=== PATIENT | female | born 1985 | race African-American/Black ===

== ENCOUNTER 2020-01-18 00:02 | Emergency (ER) | payer SELFPAY ==
[~2020-01-18] VITALS: Ht 157.5 cm; Wt 49.9 kg
[2020-01-18 00:07] VITALS: BP 131/78
--- NOTE | 2020-01-18 00:08 | Emergency Room Report ---
History of Present Illness General Chief Complaint: Vomiting Source: Patient Present Illness HPI Disclaimer: Please note that this report is being documented using DRAGON technology. This can lead to erroneous entry secondary to incorrect interpretation by the dictating instrument. HPI: 34-year-old female with no reported medical history presents for evaluation of vomiting. The patient states she has been having multiple episodes of emesis and is now dry heaving for the past 4 hours. She was drinking alcohol with friends on an empty stomach this afternoon. Denies abdominal pain aside from a soreness from retching. Denies diarrhea, fever, chills, shortness of breath, cough, URI symptoms, back pain, dysuria, hematuria , vaginal bleeding or vaginal discharge. No history of abdominal surgeries. No history of pancreatitis or cholecystitis. Denies tobacco or drug use. PMH: Denies PSH: Denies Allergies: Denies Social Hx: Social alcohol use Allergies: Coded Allergies: No Known Allergies (Unverified , 01/18/20) Review of Systems All Other Systems: negative except mentioned in HPI Physical Exam General: Awake and alert, uncomfortable appearing, retching HEENT: NC/AT. EOMI. Cardiovascular: RRR. S1 and S2 normal. No murmur appreciated Resp: Normal work of breathing. No cough, wheezing or crackles appreciated Abdomen: Abdomen is soft, nondistended. Nontender, no rebound, no masses Skin: Intact. No abrasions, laceration or rash over the exposed skin MSK: Normal tone and bulk. Moving all extremities. No obvious deformity. Neuro: Awake and alert. Mentating appropriately. Medical Decision Making Diagnostic Impression: Primary Impression: Vomiting Additional Impression: Gastritis ER Course 34-year-old female presents for evaluation of persistent nausea and vomiting. Differential includes was not limited to gastritis, gastroenteritis, pancreatitis, cholecystitis, dehydration, electrolyte abnormality, viral syndrome, food poisoning. Patient received antiemetics, antacids, IV fluids with improvement of her symptoms. Labs have returned within normal limits. No evidence of pancreatitis or urinary tract infection. Belly remained soft. No indication for emergent imaging at this time. Will discharge to follow-up with PMD and prescribed symptomatic medication. Discussed reasons to return to the emergency department. She understands and agrees with this treatment plan. Laboratory Tests Test 01/18/20 00:10 01/18/20 01:30 White Blood Count 14.7 K/UL (4.8-10.8) H Red Blood Count 4.38 M/UL (4.20-5.40) Hemoglobin 14.6 G/DL (12.0-16.0) Hematocrit 41.0 % (37.0-47.0) Mean Corpuscular Volume 94 FL (80-99) Mean Corpuscular Hemoglobin 33.4 PG (27.0-31.0) H Mean Corpuscular Hemoglobin Concent 35.6 G/DL (32.0-36.0) Red Cell Distribution Width 11.3 % (11.6-14.8) L Platelet Count 261 K/UL (150-450) Mean Platelet Volume 6.0 FL (6.5-10.1) L Neutrophils (%) (Auto) 78.4 % (45.0-75.0) H Lymphocytes (%) (Auto) 16.1 % (20.0-45.0) L Monocytes (%) (Auto) 4.6 % (1.0-10.0) Eosinophils (%) (Auto) 0.1 % (0.0-3.0) Basophils (%) (Auto) 0.8 % (0.0-2.0) Sodium Level 144 MMOL/L (136-145) Potassium Level 3.9 MMOL/L (3.5-5.1) Chloride Level 104 MMOL/L (98-107) Carbon Dioxide Level 16 MMOL/L (21-32) L Anion Gap 24 mmol/L (5-15) H Blood Urea Nitrogen 10 mg/dL (7-18) Creatinine 0.9 MG/DL (0.55-1.30) Estimated Glomerular Filtration Rate > 60 mL/min (>60) Glucose Level 109 MG/DL (74-106) H Calcium Level 9.6 MG/DL (8.5-10.1) Total Bilirubin 1.1 MG/DL (0.2-1.0) H Direct Bilirubin 0.3 MG/DL (0.0-0.3) Aspartate Amino Transferase (AST) 26 U/L (15-37) Alanine Aminotransferase (ALT) 31 U/L (12-78) Alkaline Phosphatase 35 U/L (46-116) L Total Protein 8.3 G/DL (6.4-8.2) H Albumin 4.5 G/DL (3.4-5.0) Globulin 3.8 g/dL Albumin/Globulin Ratio 1.2 (1.0-2.7) Lipase 155 U/L (73-393) Human Chorionic Gonadotropin, Quant 1 mIU/mL (1-6) Urine Color Pale yellow Urine Appearance Clear Urine pH 6 (4.5-8.0) Urine Specific [place] 1.015 (1.005-1.035) Urine Protein 1+ (NEGATIVE) H Urine Glucose (UA) Negative (NEGATIVE) Urine Ketones 4+ (NEGATIVE) H Urine Blood Negative (NEGATIVE) Urine Nitrite Negative (NEGATIVE) Urine Bilirubin Negative (NEGATIVE) Urine Urobilinogen Normal MG/DL (0.0-1.0) Urine Leukocyte Esterase 1+ (NEGATIVE) H Urine RBC 0-2 /HPF (0 - 2) Urine WBC 0-2 /HPF (0 - 2) Urine Squamous Epithelial Cells Few /LPF (NONE/OCC) Urine Bacteria None /HPF (NONE) Disposition: HOME, SELF-CARE Condition: Stable Scripts Famotidine* (Pepcid 20mg tablet*) 20 Mg Tablet 20 MG ORAL DAILY, #30 TAB 0 Refills Prov: Kamari Ramos MD 01/18/20 Ondansetron Odt* (ZOFRAN ODT*) 4 Mg Tab.rapdis 4 MG BC EVERY 6 HOURS PRN for Nausea & Vomiting, #10 TAB 0 Refills Prov: Kamari Ramos MD 01/18/20 Kamari Ramos MD January 18, 2020 00:08
--- NOTE | 2020-01-18 00:10 | NUR ---
ED Nurse Note: PT BROUGHT IN BY RA 29 FROM HOME C/O 04/23 ABD PAIN SINCE 1999 YESTERDAY. PT STATES DRINKING ALCOHOL LAST NIGHT. VSS, NAD, AMBULATORY, AAOX4.
[2020-01-18] MEDS ORDERED: DiphenhydrAMINE 50mg/ml Inj IVP ONE (00:15)
--- NOTE | 2020-01-18 00:15 | NUR ---
ED Nurse Note: BLOOD COLLECTED AND SENT TO LAB
[2020-01-18 00:37] LABS: BASOPHILS % (AUTO) 0.8 % (0.0-2.0); EOSINOPHILS % (AUTO) 0.1 % (0.0-3.0); HEMOGLOBIN 14.6 G/DL (12.0-16.0); LYMPHOCYTES % (AUTO) 16.1 % (20.0-45.0); MEAN CORPUSCULAR VOLUME 94 FL (80-99); MONOCYTES % (AUTO) 4.6 % (1.0-10.0); NEUTROPHILS % (AUTO) 78.4 % (45.0-75.0); PLATELET COUNT 261 K/UL (150-450); RED BLOOD COUNT 4.38 M/UL (4.20-5.40); RED CELL DISTRIBUTION WIDTH 11.3 % (11.6-14.8); WHITE BLOOD COUNT 14.7 K/UL (4.8-10.8)
[2020-01-18 00:49] LABS: ANION GAP 24 mmol/L (5-15); BLOOD UREA NITROGEN 10 mg/dL (7-18); CALCIUM 9.6 MG/DL (8.5-10.1); CARBON DIOXIDE 16 MMOL/L (21-32); CHLORIDE 104 MMOL/L (98-107); CREATININE 0.9 MG/DL (0.55-1.30); POTASSIUM 3.9 MMOL/L (3.5-5.1); SODIUM 144 MMOL/L (136-145)
[2020-01-18 00:59] LABS: ALANINE AMINOTRANSFERASE 31 U/L (12-78); ALBUMIN 4.5 G/DL (3.4-5.0); ALBUMIN/GLOBULIN RATIO 1.2 (1.0-2.7); ALKALINE PHOSPHATASE 35 U/L (46-116); ASPARTATE AMINO TRANSFERASE 26 U/L (15-37); BILIRUBIN,TOTAL 1.1 MG/DL (0.2-1.0)
[2020-01-18 01:01] LABS: BILIRUBIN,DIRECT 0.3 MG/DL (0.0-0.3)
[2020-01-18] MEDS ORDERED: ONDANSETRON ODT4 MG BC (01:23)
[2020-01-18] MEDS ORDERED: FAMOTIDINE20 MG ORAL (01:23)
[2020-01-18 01:38] LABS: APPEARANCE,URINE CLEAR; BILIRUBIN, URINE NEGATIVE (NEGATIVE); COLOR,URINE PALE YELLOW; GLUCOSE, URINE (UA) NEGATIVE (NEGATIVE); KETONES,URINE 4+ (NEGATIVE); LEUKOCYTE ESTERASE ,URINE 1+ (NEGATIVE); NITRITE,URINE NEGATIVE (NEGATIVE); PH,URINE 6 (4.5-8.0); PROTEIN,URINE 1+ (NEGATIVE); UROBILINOGEN,URINE NORMAL MG/DL (0.0-1.0)
[2020-01-18 02:00] VITALS: BP 117/68
--- NOTE | 2020-01-18 02:30 | NUR ---
ER DISCHARGE NOTE: Patient is cleared to be discharged per ERMD, pt is aox4, on room air, with stable vital signs. pt was given dc and prescription instructions, pt was able to verbalize understanding, pt id band and iv site removed without complications. pt is able to ambulate with steady gait. pt took all belongings.
== END 2020-01-18 02:30 | disposition home or self-care (01) ==
LOC: EDBD 00:02 → EMR 00:29
DX: K29.70 Gastritis, unspecified, without bleeding (principal); R11.10 Vomiting, unspecified
CPT/HCPCS: 36415; 80053; 81003; 82248; 83690; 84702; 85025; 96374; 96375; 96376; 99284; J1200; J2405; S0028

== ENCOUNTER 2020-01-20 15:53 | Inpatient (IN) | payer BC ==
[~2020-01-20] VITALS: Ht 160 cm; Wt 48.5 kg
[~2020-01-20 15:53] MED LIST: FAMOTIDINE20 MG ORAL; ONDANSETRON ODT4 MG BC
--- NOTE | 2020-01-20 16:10 | NUR ---
ED Nurse Note: Patient walked into ED from home c/o abdominal pain, nausea and vomiting. Denies diarrhea. Pt was seen visited ED on 01/17/20 for the same symptoms pt took Zofran prior to arrival to ED.
[2020-01-20] MEDS ORDERED: Omnipaque-300 100ml vial INJ PRN (16:30)
[2020-01-20 16:39] LABS: BASOPHILS % (AUTO) 1.5 % (0.0-2.0); EOSINOPHILS % (AUTO) 0.1 % (0.0-3.0); HEMOGLOBIN 13.9 G/DL (12.0-16.0); LYMPHOCYTES % (AUTO) 16.3 % (20.0-45.0); MEAN CORPUSCULAR VOLUME 101 FL (80-99); MONOCYTES % (AUTO) 8.6 % (1.0-10.0); NEUTROPHILS % (AUTO) 73.6 % (45.0-75.0); PLATELET COUNT 260 K/UL (150-450); RED BLOOD COUNT 4.27 M/UL (4.20-5.40); RED CELL DISTRIBUTION WIDTH 11.7 % (11.6-14.8)
--- NOTE | 2020-01-20 16:39 | NUR ---
ED Nurse Note: administered phenergan using D5W 50ml, will infuse over 25 minutes.
--- NOTE | 2020-01-20 17:03 | Diagnostic Imaging Report ---
Indication: Shortness of breath Technique: One view of the chest Comparison: none Findings: Lungs and pleural spaces are clear. Heart size is normal. Impression: No acute process
[2020-01-20 17:04] LABS: ALANINE AMINOTRANSFERASE 54 U/L (12-78); ALBUMIN 4.5 G/DL (3.4-5.0); ALKALINE PHOSPHATASE 42 U/L (46-116); ANION GAP 22 mmol/L (5-15); ASPARTATE AMINO TRANSFERASE 41 U/L (15-37); BILIRUBIN,TOTAL 1.7 MG/DL (0.2-1.0); BLOOD UREA NITROGEN 14 mg/dL (7-18); CALCIUM 9.4 MG/DL (8.5-10.1); CARBON DIOXIDE 20 MMOL/L (21-32); CHLORIDE 99 MMOL/L (98-107); SODIUM 139 MMOL/L (136-145)
[2020-01-20 17:05] LABS: POTASSIUM 2.5 MMOL/L (3.5-5.1)
[2020-01-20 17:06] LABS: BILIRUBIN,DIRECT 0.3 MG/DL (0.0-0.3)
[2020-01-20 17:09] VITALS: BP 130/86
--- NOTE | 2020-01-20 17:54 | NUR ---
ED Nurse Note: patient is vomiting, notified to ARUN Bunn.
[2020-01-20] MEDS ORDERED: Metoclopramide 10mg/2ml Inj IVP ONE (18:00)
[2020-01-20] MEDS ORDERED: Capsaicin 0.075% Cream TOPIC SCH (18:00)
--- NOTE | 2020-01-20 18:17 | NUR ---
ED Nurse Note: patient taken to CT scan, kcl infusion on hold.
--- NOTE | 2020-01-20 18:31 | Emergency Room Report ---
History of Present Illness General Chief Complaint: Abdominal Pain Source: Patient (Sepideh Ferreira) Present Illness HPI 34-year-old female with no symptom past medical history here complaining of 3 days of multiple bouts of nonbloody emesis, abdominal pain, and weakness. Patient was seen [facility] 2 days ago for similar symptoms. Blood work was within normal limits, patient was discharged with Zofran and omeprazole. Patient reports that her symptoms started 2 days ago after he drank alcohol for [employer] however has not had any alcohol or drug use in the past few days. Patient has intractable vomiting 3 different antiemetics were given. Patient continues to vomit. Also appears to be lethargic. Denies any chest pain shortness of breath. Denies any fever and chills. Reports that she has been staying home the whole time. Denies urinary symptoms. Denies . (Sepideh Ferreira) Allergies: Coded Allergies: No Known Allergies (Unverified , 01/18/20) COVID-19 Screening Contact w/high risk pt: No Recent Travel to affected area: No Experienced COVID-19 symptoms?: No (Sepideh Ferreira) Patient History Past Medical History: see triage record Past Surgical History: none Pertinent Family History: none Now: No Immunizations: UTD Reviewed Nursing Documentation: PMH: Agreed; PSxH: Agreed (Sepideh Ferreira) Nursing Documentation-PMH Past Medical History: No Stated History (Sepideh Ferreira) Review of Systems All Other Systems: negative except mentioned in HPI (Sepideh Ferreira) Physical Exam Vital Signs Date Time Temp Pulse Resp B/P (MAP) Pulse Ox O2 Delivery O2 Flow Rate FiO2 01/20/20 16:05 77 19 130/86 (101) 98 Room Air 01/20/20 17:09 99.0 Sp02 EP Interpretation: reviewed, normal General Appearance: alert, moderate distress Head: normocephalic, atraumatic Eyes: bilateral eye normal inspection, bilateral eye PERRL ENT: hearing grossly normal, normal pharynx, no angioedema, normal voice Respiratory: chest non-tender, lungs clear, normal breath sounds, no rhonchi, no respiratory distress, no retraction, no wheezing, speaking full sentences Cardiovascular #1: no edema, no murmur, normal capillary refill Cardiovascular #2: 2+ radial (R), 2+ radial (L) Gastrointestinal: normal bowel sounds, non tender, soft, no mass, no organomegaly, no peritonitis, no bruit, non-distended, no guarding, no hernia, no rebound Rectal: deferred Genitourinary: no CVA tenderness Musculoskeletal: back normal Neurologic: alert, motor strength/tone normal, oriented x3, sensory intact, responsive, speech normal Psychiatric: judgement/insight normal, memory normal, mood/affect normal, no suicidal/homicidal ideation Skin: no rash Lymphatic: no adenopathy (Sepideh Ferreira) Medical Decision Making PA Attestation All diagnoses and treatment plans were reviewed and discussed with my supervising physician Dr. Bernard (Sepideh Ferreira) Diagnostic Impression: Primary Impression: Intractable vomiting Additional Impression: Hypokalemia ER Course 34-year-old female with no symptom past medical history here complaining of 3 days of multiple bouts of nonbloody emesis, abdominal pain, and weakness. Patient was seen [facility] 2 days ago for similar symptoms. Blood work was within normal limits, patient was discharged with Zofran and omeprazole. Patient reports that her symptoms started 2 days ago after he drank alcohol for [employer] however has not had any alcohol or drug use in the past few days. Patient has intractable vomiting 3 different antiemetics were given. Patient continues to vomit. Also appears to be lethargic. Denies any chest pain shortness of breath. Denies any fever and chills. Reports that she has been staying home the whole time. Denies urinary symptoms. Denies . Ddx considered but are not limited to: appendicitis, cholangeitis, gastritis, gastroenteritis, UTI, pyelonephritis, SBO, diverticulitis, influenza with GI manifestation, [place], complication with , intractable vomiting, hypo- kalemia Vital signs: are WNL, pt. is afebrile H&PE are most consistent with: Intractable vomiting, hypokalemia ORDERS: abdominal CT, abdominal pain set, EKG, ED INTERVENTIONS: Pepcid, NS bolus, Zofran, Phenergan, Reglan Patient was admitted with diagnosis of intractable vomiting, hypokalemia to Dr. Sykes under supervision of : Marco Antonio pt stable at time of admission (Sepideh Ferreira) ER Course Patient seen and worked up by my PA. She had been seen recently and discharged for nausea and vomiting however had not improved. She returned today due to persistent nausea and vomiting. CT scan of the abdomen pelvis did not demonstrate any acute pathology. Patient's potassium was low and repletion started in the ER. She continued to have emesis in the ER so we plan to admit for potassium repletion observation and IV hydration. Case discussed with Dr. Sykes who agreed to admit. (Milton Bernard M.D.) EKG Diagnostic Results Rate: bradycardiac ST Segments: other - U waves Other Impression No acute ST changes (Sepideh Ferreira) Chest X-Ray Diagnostic Results Chest X-Ray Diagnostic Results : Chest X-Ray Ordered: Yes # of Views/Limited/Complete: 1 View Indication: Other EP Interpretation: Yes PA Xray: Interpretation reviewed, by supervising MD, and agrees with findings. Interpretation: no consolidation, no effusion, no pneumothorax Impression: No acute disease Electronically Signed by: Sepideh Gao PA-C (Sepideh Ferreira) CT/MRI/US Diagnostic Results CT/MRI/US Diagnostic Results : Imaging Test Ordered: CT abdomen pelvis with contrast Impression FINDINGS: Limitations: Paucity of intraperitoneal fat. Lung bases: No significant abnormality. ABDOMEN: Liver: No significant abnormality. Gallbladder and bile ducts: No significant abnormality. No calcified stones. Pancreas: No significant abnormality. Spleen: No significant abnormality. Adrenals: No significant abnormality. Kidneys and ureters: Subcentimeter focus of hypoattenuation in the left kidney is too small to characterize. No hydronephrosis. Stomach and bowel: No significant abnormality. Bowel is nondilated. PELVIS: Appendix: No findings to suggest acute appendicitis. Bladder: No significant abnormality. Reproductive: Unremarkable as visualized. ABDOMEN and PELVIS: Intraperitoneal space: No significant abnormality. No free air. Bones/joints: No acute fracture or malalignment. Soft tissues: No significant abnormality. Vasculature: No significant abnormality. No abdominal aortic aneurysm. Lymph nodes: No significant abnormality. IMPRESSION: No acute CT findings in the abdomen or pelvis. Radiologist: Odette Julian MD Electronically Signed: 01/20/20 18:44 (Sepideh Ferreira) Last Vital Signs Date Time Temp Pulse Resp B/P (MAP) Pulse Ox O2 Delivery O2 Flow Rate FiO2 01/20/20 17:09 99.0 68 16 130/86 100 Room Air (Sepideh Ferreira) Disposition: ADMITTED INPATIENT Condition: Stable Referrals: NOT CHOSEN IPA/,REFERRING (PCP) Sepideh Ferreira January 20, 2020 18:31 Milton Bernard M.D. January 20, 2020 21:22
--- NOTE | 2020-01-20 18:34 | NUR ---
ED Nurse Note: patient came back from CT
--- NOTE | 2020-01-20 18:45 | Diagnostic Imaging Report ---
EXAM: CT Abdomen and Pelvis With Intravenous Contrast CLINICAL HISTORY: PAIN TECHNIQUE: Axial computed tomography images of the abdomen and pelvis with intravenous contrast. CTDI is 2.8 mGy and DLP is 136.6 mGy-cm. One or more of the following dose reduction techniques were used: automated exposure control, adjustment of the mA and/or kV according to patient size, use of iterative reconstruction technique. COMPARISON: No relevant prior studies available. FINDINGS: Limitations: Paucity of intraperitoneal fat. Lung bases: No significant abnormality. ABDOMEN: Liver: No significant abnormality. Gallbladder and bile ducts: No significant abnormality. No calcified stones. Pancreas: No significant abnormality. Spleen: No significant abnormality. Adrenals: No significant abnormality. Kidneys and ureters: Subcentimeter focus of hypoattenuation in the left kidney is too small to characterize. No hydronephrosis. Stomach and bowel: No significant abnormality. Bowel is nondilated. PELVIS: Appendix: No findings to suggest acute appendicitis. Bladder: No significant abnormality. Reproductive: Unremarkable as visualized. ABDOMEN and PELVIS: Intraperitoneal space: No significant abnormality. No free air. Bones/joints: No acute fracture or malalignment. Soft tissues: No significant abnormality. Vasculature: No significant abnormality. No abdominal aortic aneurysm. Lymph nodes: No significant abnormality. IMPRESSION: No acute CT findings in the abdomen or pelvis.
--- NOTE | 2020-01-20 19:09 | NUR ---
HAND-OFF: Report given to Anais URBAN.
[2020-01-20 19:10] VITALS: BP 130/90
--- NOTE | 2020-01-20 19:10 | NUR ---
ED Nurse Note: Report received from RAJNI Valverde. Pt is resting in bed at this time, no vomiting recently. Pt denies any pain. Pt is aware of admission. Vital signs are stable.
--- NOTE | 2020-01-20 20:00 | NUR ---
ED Nurse Note: Report given to RAJNI Alex.
--- NOTE | 2020-01-20 20:10 | NUR ---
TRANSFER TO FLOOR: Pt transferred to med surg unit as ordered by ALAYNA. Pt is aaox4, NAD and vital signs are stable. Endorsed plan that pt still has 2nd IV bag of KCl 10 meq infusing at this time upon transfer to floor. IV is patent and intact. Pt taken to unit by kristy via carlos. Pt belongings sent with pt.
[2020-01-20] MEDS ORDERED: Acetaminophen 650 MG SUPP RECTAL PRN (20:15)
[2020-01-20 20:21] VITALS: BP 129/84
--- NOTE | 2020-01-20 21:00 | NUR ---
NURSE NOTES: Received report from Anais in ED. Patient arrived to unit at 2014 in no apparent distress, patient reporting no pain but had one small episode of emesis. IV intact, patent, running KCL 10mEq IV on arrival. Belongings checked at bedside. Orders entered by Dr. Sykes and noted. Called MD for diet, DVT prophylaxis, and isolation orders. Orders received, read back, and entered. Patient placed on contact/droplet for PUI covid, patient swabbed. Nursing color paste mixing supervisor and customer services supervisor notified. Patient denies covid symptoms and stated she has had no known contact with any covid positive persons that she is aware of. Patient had low grade fever of 100.3 on arrival to unit. Patient refused Tylenol suppository for fever. Patient updated on plan of care. Side rails upx2, bed low and locked, call light within reach, patient instructed to call for assistance when getting OOB and verbalized agreement.
[2020-01-20] MEDS: D5 1/2NS w/KCl 40meq 1000ml 1,000 ML IV SCH (21:43)
[2020-01-20] MEDS: Pantoprazole Inj IVP SCH (21:43)
[2020-01-21] VITALS: BP 137/89
[2020-01-21 04:00] VITALS: BP 110/68
[2020-01-21] MEDS: D5 1/2NS w/KCl 40meq 1000ml 1,000 ML IV SCH ×2 (04:06→10:44)
--- NOTE | 2020-01-21 04:40 | NUR ---
NURSE NOTES: AM labs collected and transported to lab.
--- NOTE | 2020-01-21 05:45 | NUR ---
NURSE NOTES: Urine collected and sent to lab.
[2020-01-21 06:22] LABS: EOSINOPHILS % (AUTO) 0.4 % (0.0-3.0); HEMATOCRIT 33.1 % (37.0-47.0); HEMOGLOBIN 11.7 G/DL (12.0-16.0); MEAN CORPUSCULAR VOLUME 94 FL (80-99); MONOCYTES % (AUTO) 9.5 % (1.0-10.0); NEUTROPHILS % (AUTO) 60.1 % (45.0-75.0); PLATELET COUNT 206 K/UL (150-450); RED BLOOD COUNT 3.53 M/UL (4.20-5.40); RED CELL DISTRIBUTION WIDTH 10.7 % (11.6-14.8); WHITE BLOOD COUNT 8.4 K/UL (4.8-10.8)
[2020-01-21 06:48] LABS: ALANINE AMINOTRANSFERASE 40 U/L (12-78); ALBUMIN 3.2 G/DL (3.4-5.0); ALBUMIN/GLOBULIN RATIO 0.9 (1.0-2.7); ALKALINE PHOSPHATASE 31 U/L (46-116); ANION GAP 11 mmol/L (5-15); ASPARTATE AMINO TRANSFERASE 27 U/L (15-37); BILIRUBIN,TOTAL 1.1 MG/DL (0.2-1.0); BLOOD UREA NITROGEN 7 mg/dL (7-18); CALCIUM 7.7 MG/DL (8.5-10.1); CARBON DIOXIDE 22 MMOL/L (21-32); CHLORIDE 107 MMOL/L (98-107); CREATININE 0.7 MG/DL (0.55-1.30); POTASSIUM 3.7 MMOL/L (3.5-5.1); SODIUM 140 MMOL/L (136-145)
[2020-01-21 06:49] LABS: BILIRUBIN,DIRECT 0.2 MG/DL (0.0-0.3)
--- NOTE | 2020-01-21 07:29 | NUR ---
HAND-OFF: Report given to Miguel URBAN.
--- NOTE | 2020-01-21 07:50 | NUR ---
NURSE NOTES: Received pt from RAJNI Alex. pt was sleeping, no acute distress, call light w/in reach.
[2020-01-21 08:00] VITALS: BP 115/70
[2020-01-21 08:23] LABS: APPEARANCE,URINE CLEAR; BILIRUBIN, URINE NEGATIVE (NEGATIVE); COLOR,URINE PALE YELLOW; GLUCOSE, URINE (UA) NEGATIVE (NEGATIVE); KETONES,URINE 2+ (NEGATIVE); LEUKOCYTE ESTERASE ,URINE NEGATIVE (NEGATIVE); NITRITE,URINE NEGATIVE (NEGATIVE); PH,URINE 6 (4.5-8.0); PROTEIN,URINE NEGATIVE (NEGATIVE); UROBILINOGEN,URINE NORMAL MG/DL (0.0-1.0)
[2020-01-21] MEDS: Pantoprazole Inj IVP SCH (08:42)
[2020-01-21 12:00] VITALS: BP 119/73
--- NOTE | 2020-01-21 13:39 | GI Initial Consult Note ---
History of Present Illness General Date patient seen: January 21, 2020 Time patient seen: 13:28 Reason for Hospitalization: Abdominal Pain Referring physician: MARIBEL Reason for Consultation: PERSISTENT N/V Present Illness HPI 34-year-old female with no symptom past medical history here complaining of 3 days of multiple bouts of nonbloody emesis, abdominal pain, and weakness. Patient was seen [facility] 2 days ago for similar symptoms. Blood work was within normal limits, patient was discharged with Zofran and omeprazole. Patient reports that her symptoms started 2 days ago after he drank alcohol for [place] ok Garcia however has not had any alcohol or drug use in the past few days. Patient has intractable vomiting 3 different antiemetics were given. Patient continues to vomit. Also appears to be lethargic. Denies any chest pain shortness of breath. Denies any fever and chills. Reports that she has been staying home the whole time. Denies urinary symptoms. Denies . GI consulted for persistent nausea vomiting. Patient was seen, awake alert oriented x4. No apparent distress. At time of evaluation, the patient denied any recurrent or recent nausea or vomiting. Overall the patient states he does feel better. Her last episode of emesis was yesterday. The patient denied any hematemesis or coffee grounds. The patient believes her emesis was constituted from her excessive use of alcohol. The patient admits to using marijuana, however states that she uses it socially. Patient stated her initial use of marijuana began in November 2019. Abdominal pelvis CT showed no acute findings in the abdomen or pelvis. Significant labs reviewed; potassium 2.5, total bilirubin 1.7 hCG negative lipase 212. No history of endoscopic or colonoscopy. Home Meds Active Scripts Famotidine* (Pepcid 20mg tablet*) 20 Mg Tablet, 20 MG ORAL DAILY, #30 TAB 0 Refills Prov:Kamari Ramos MD 01/18/20 Ondansetron Odt* (ZOFRAN ODT*) 4 Mg Tab.rapdis, 4 MG BC EVERY 6 HOURS PRN for Nausea & Vomiting, #10 TAB 0 Refills Prov:Kamari Ramos MD 01/18/20 Med list reviewed/reconciled: Yes Allergies: Coded Allergies: No Known Allergies (Unverified , 01/18/20) Patient History History Provided By: Patient, Medical Record PMH Narrative Contact w/high risk pt: No Recent Travel to affected area: No Experienced COVID-19 symptoms?: No Past Medical History: see triage record Past Surgical History: none Pertinent Family History: none Now: No Immunizations: UTD Reviewed Nursing Documentation: PMH: Agreed; PSxH: Agreed Past Medical History: No Stated History Social History: Reports: alcohol use Review of Systems All Other Systems: negative except mentioned in HPI Physical Exam Vital Signs Date Time Temp Pulse Resp B/P (MAP) Pulse Ox O2 Delivery O2 Flow Rate FiO2 01/20/20 16:05 77 19 130/86 (101) 98 Room Air 01/20/20 17:09 99.0 Sp02 EP Interpretation: reviewed, normal Labs Laboratory Tests Test 01/20/20 16:10 01/20/20 16:30 01/20/20 18:14 01/21/20 04:00 White Blood Count 8.0 K/UL (4.8-10.8) 8.4 K/UL (4.8-10.8) Red Blood Count 4.27 M/UL (4.20-5.40) 3.53 M/UL (4.20-5.40) L Hemoglobin 13.9 G/DL (12.0-16.0) 11.7 G/DL (12.0-16.0) L Hematocrit 43.0 % (37.0-47.0) 33.1 % (37.0-47.0) L Mean Corpuscular Volume 101 FL (80-99) H 94 FL (80-99) Mean Corpuscular Hemoglobin 32.7 PG (27.0-31.0) H 33.1 PG (27.0-31.0) H Mean Corpuscular Hemoglobin Concent 32.4 G/DL (32.0-36.0) 35.3 G/DL (32.0-36.0) Red Cell Distribution Width 11.7 % (11.6-14.8) 10.7 % (11.6-14.8) L Platelet Count 260 K/UL (150-450) 206 K/UL (150-450) Mean Platelet Volume 7.0 FL (6.5-10.1) 6.2 FL (6.5-10.1) L Neutrophils (%) (Auto) 73.6 % (45.0-75.0) 60.1 % (45.0-75.0) Lymphocytes (%) (Auto) 16.3 % (20.0-45.0) L 29.0 % (20.0-45.0) Monocytes (%) (Auto) 8.6 % (1.0-10.0) 9.5 % (1.0-10.0) Eosinophils (%) (Auto) 0.1 % (0.0-3.0) 0.4 % (0.0-3.0) Basophils (%) (Auto) 1.5 % (0.0-2.0) 1.0 % (0.0-2.0) Sodium Level 139 MMOL/L (136-145) 140 MMOL/L (136-145) Potassium Level 2.5 MMOL/L (3.5-5.1) *L 3.7 MMOL/L (3.5-5.1) Chloride Level 99 MMOL/L (98-107) 107 MMOL/L (98-107) Carbon Dioxide Level 20 MMOL/L (21-32) L 22 MMOL/L (21-32) Anion Gap 22 mmol/L (5-15) H 11 mmol/L (5-15) Blood Urea Nitrogen 14 mg/dL (7-18) 7 mg/dL (7-18) Creatinine 1.0 MG/DL (0.55-1.30) 0.7 MG/DL (0.55-1.30) Estimat Glomerular Filtration Rate > 60 mL/min (>60) > 60 mL/min (>60) Glucose Level 107 MG/DL (74-106) H 120 MG/DL (74-106) H Calcium Level 9.4 MG/DL (8.5-10.1) 7.7 MG/DL (8.5-10.1) L Magnesium Level 2.0 MG/DL (1.8-2.4) Total Bilirubin 1.7 MG/DL (0.2-1.0) H 1.1 MG/DL (0.2-1.0) H Direct Bilirubin 0.3 MG/DL (0.0-0.3) 0.2 MG/DL (0.0-0.3) Aspartate Amino Transf (AST/SGOT) 41 U/L (15-37) H 27 U/L (15-37) Alanine Aminotransferase (ALT/SGPT) 54 U/L (12-78) 40 U/L (12-78) Alkaline Phosphatase 42 U/L (46-116) L 31 U/L (46-116) L Total Protein 8.8 G/DL (6.4-8.2) H 6.6 G/DL (6.4-8.2) Albumin 4.5 G/DL (3.4-5.0) 3.2 G/DL (3.4-5.0) L Globulin 4.3 g/dL 3.4 g/dL Albumin/Globulin Ratio 1.0 (1.0-2.7) 0.9 (1.0-2.7) L Lipase 208 U/L (73-393) 212 U/L (73-393) Human Chorionic Gonadotropin, Qual Negative (NEGATIVE) Serum Alcohol < 3 mg/dL Lactic Acid Level 2.10 mmol/L (0.4-2.0) H 1.40 mmol/L (0.66-2.22) Thyroid Stimulating Hormone (TSH) 0.974 uiU/mL (0.358-3.740) Test 01/21/20 05:30 Urine Color Pale yellow Urine Appearance Clear Urine pH 6 (4.5-8.0) Urine Specific [place] 1.015 (1.005-1.035) Urine Protein Negative (NEGATIVE) Urine Glucose (UA) Negative (NEGATIVE) Urine Ketones 2+ (NEGATIVE) H Urine Blood 5+ (NEGATIVE) H Urine Nitrite Negative (NEGATIVE) Urine Bilirubin Negative (NEGATIVE) Urine Urobilinogen Normal MG/DL (0.0-1.0) Urine Leukocyte Esterase Negative (NEGATIVE) Urine RBC 5-10 /HPF (0 - 2) H Urine WBC 2-4 /HPF (0 - 2) Urine Squamous Epithelial Cells Occasional /LPF Urine Bacteria Occasional /HPF (NONE) Urine HCG, Qualitative Negative (NEGATIVE) Urine Opiates Screen Negative (NEGATIVE) Urine Barbiturates Screen Negative (NEGATIVE) Phencyclidine (PCP) Screen Negative (NEGATIVE) Urine Amphetamines Screen Negative (NEGATIVE) Urine Benzodiazepines Screen Negative (NEGATIVE) Urine Cocaine Screen Negative (NEGATIVE) Urine Marijuana (THC) Screen Positive (NEGATIVE) H General Appearance: well appearing, no apparent distress, alert Head: normocephalic EENT: PERRL/EOMI, normal ENT inspection Neck: supple Respiratory: normal breath sounds, no respiratory distress Cardiovascular: normal rate Gastrointestinal: normal inspection, non tender, soft, normal bowel sounds, non -distended Rectal: deferred Genitourinary: no CVA tenderness Musculoskeletal: normal inspection, back normal Neurologic: alert, oriented x3, responsive, normal inspection Psychiatric: normal inspection, judgement/insight normal, memory normal Skin: normal inspection, normal color, no rash, warm/dry, palpation normal, well hydrated Lymphatic: normal inspection, no adenopathy Current Medications Current Medications Medications (Trade) Dose Ordered Sig/Veronica Route PRN Reason Start Time Stop Time Status Last Admin Dose Admin Acetaminophen (Tylenol) 650 mg Q4H PRN RECTAL MILD/TEMP 01/20/20 20:15 02/19/20 20:14 Dextrose (Dextrose 50%) 25 ml Q30M PRN IV Hypoglycemia 01/20/20 20:15 04/19/20 20:14 Dextrose (Dextrose 50%) 50 ml Q30M PRN IV Hypoglycemia 01/20/20 20:15 04/19/20 20:14 Dextrose/ Electrolytes 1,000 ml @ 150 mls/hr Q6H40M IV 01/20/20 21:30 02/19/20 21:29 01/21/20 10:44 Iohexol (OMNIPAQUE-300 100ml) 100 ml NOW PRN INJ Radiology Procedure 01/20/20 16:30 01/22/20 16:21 Ondansetron HCl (Zofran) 4 mg Q4H PRN IVP Nausea & Vomiting 01/20/20 20:15 02/19/20 20:14 01/21/20 02:13 Pantoprazole (Protonix) 40 mg EVERY 12 HOURS IVP 01/20/20 21:00 02/19/20 20:59 01/21/20 08:42 GI: Plan Problems: (1) Intractable vomiting (2) Hypokalemia (3) Vomiting (4) Gastritis Plan #Intractable vomiting most likely secondary to excessive alcohol use. Hyperemesis syndrome less likely given on chronic use of marijuana. At the time of evaluation, the patient has no recurrent vomiting. -Symptomatic treatment -Advance diet as tolerated -Zofran PRN -Patient instructed to avoid alcohol -okay to DC per GI standpoint if patient tolerates diet. #Hypokalemia #Dehydration -Potassium now normal -IV hydration plus electrolyte correction #Gastritis -Continue PPI Discussed with Dr. Bush. Thank you for this patient referral, we will follow. The patient was seen and examined at bedside and all new and available data was reviewed in the patients chart. I agree with the above findings, impression and plan. (Patient seen earlier today. Signature stamp does not reflect patient encounter time.). - MD Rossana CoburnPhoenix Indian Medical CenterLane ORACLE DATABASE ARCHITECT January 21, 2020 13:39
[2020-01-21 15:16] VITALS: BP 137/74
--- NOTE | 2020-01-21 15:17 | NUR ---
NURSE NOTES: Discharge pt . stable condition, no N/V. no fever, all discharge instruction was given, pt verbalized understanding
--- NOTE | 2020-01-21 15:45 | NUR ---
NURSE NOTES: instructed pt call Dr. Sykes regarding Covid result on Thursday and let the Dr know whether positives or negative. pt verbalized she will do it. provide lab number with Dr. Sykes's number.
--- NOTE | 2020-01-21 19:45 | History and Physical Report ---
DATE OF ADMISSION: 01/20/2020 REASON FOR CONSULTATION: Intractable nausea and vomiting. HISTORY OF PRESENT ILLNESS: The patient is a 34-year-old lady generally in good health. She states she had a moderate amount of alcohol on 01/17/2020, likely 5 drinks of bourbon. She is a thin lady, and she has been vomiting since that time. She had one ER visit, but was released, was unable to hold down food or water and comes in again with intractable vomiting. There is no history of GI problems or recurrent vomiting. No fever, chills, shortness of breath. No dysuria or hematuria. No history of ulcer disease. ALLERGIES: None known. SURGERIES: None. HABITS: Alcohol binge as above with no regular alcohol. She smokes some marijuana and has a positive drug screen. SYSTEM REVIEW: Completely negative except for the above. She is 1, para 0, AB 1. PHYSICAL EXAMINATION: GENERAL: The patient is a thin lady, alert, in no acute distress. VITAL SIGNS: Temperature 100.3, repeat 99.5, pulse 71, respirations 16, blood pressure 115/70. HEAD, EYES, EARS, NOSE, AND THROAT: Sclerae are nonicteric. Ocular motions intact in all directions. Oral mucosa moist. NECK: No adenopathy or thyroid enlargement. LUNGS: Clear. HEART: Regular rhythm. No murmur. ABDOMEN: Soft. Without organomegaly or masses. EXTREMITIES: No edema, cyanosis, or clubbing. NEUROLOGIC: She is alert and oriented. Cranial nerves are intact. LABORATORY DATA: Initial labs showed sodium of 139, potassium is 2.5, bilirubin 1.7, but direct bilirubin 0.3. White count 8, hemoglobin 13.9. IMPRESSION: 1. Uncontrolled nausea and vomiting, likely post alcohol and possible marijuana, CT scan negative. 2. Hypokalemia. 3. Dehydration. 4. Negative past medical history. PLAN: The patient will be hydrated. She is already feeling better. We will observe her tolerance of diet and make disposition. Milton Sykes M.D. DR: SHELLIE JOB#: [id number] CC:
[2020-01-22] MEDS ORDERED: REGLAN10 MG ORAL (02:00)
--- NOTE | 2020-01-24 09:13 | NUR ---
*-* INSURANCE *-* ALL AVAILABLE CLINICALS AND REVIEWS HAVE BEEN FAXED TO: ANABELLA RAMIREZ Ref#[id number] ph#[phone] [employer] fax#[phone] Addendum: 01/24/20 at 1002 by CHAD FLETCHER CM UNABLE TO SEND DISCHARGE SUMMARY NOT IN THE SYSTEM YET
--- NOTE | 2020-01-24 13:19 | Discharge Summary ---
Discharge Summary Discharge Summary _ DATE OF ADMISSION: 01/20/2020 DATE OF DISCHARGE: 01/21/2020 DISCHARGED BY: Dr. Sykes REASON FOR ADMISSION: 34 years old female with no significant past medical history, presented to emergency department with intractable vomiting, unable to hold down food and water No prior history of GI problems or recurrent vomiting. No fever, chills . No shortness of breath. No dysuria or hematuria. No history of ulcer disease. Patient reported to have a moderate amount of alcohol on 01/17/2020, like 5 drinks of [place]. Patient was a thin female and had been vomiting since that. Upon evaluation laboratory work-up revealed no leukocytosis , stable hemoglobin hematocrit and platelet count. K-2.5. Urine toxicology screen was positive for marijuana. Serum alcohol level was less than 3. Urinalysis revealed no evidence of urinary tract infection. Lactic acid 2.1 ,repeated 1.4 . Urine test was negative. Chest x-ray demonstrated no acute cardiopulmonary pathology. CT scan of the abdomen and pelvis demonstrated no acute findings . Patient was admitted for further management. CONSULTANTS: GI specialist Dr. Bush [facility] COURSE: Patient admitted to medical surgical floor and started on IV fluids. Potassium was replaced and stable prior to discharge GI specialist seen and evaluated patient . Intractable vomiting was most likely secondary to excessive alcohol use. Hyperemesis syndrome due to marijuana use was less likely, given chronic use of marijuana. Symptomatic treatment provided . Antiemetic provided as needed. Patient instructed to avoid alcohol. GI prophylaxis with a PPI provided. Patient slowly started on diet and was advanced as tolerated. Patient was able to tolerate diet. GI specialist cleared for discharge. Patient clinically stabilized and was ready for discharge home. Due to rapid and unexpected improvement in patient condition, patient was discharged in 1 week FINAL DIAGNOSES: Intractable vomiting, most likely secondary to excessive alcohol use -resolved Hypokalemia -corrected Chronic marijuana user Dehydration Gastritis DISCHARGE MEDICATIONS: See Medication Reconciliation list. DISCHARGE INSTRUCTIONS: Patient was discharged home. Follow-up with a primary care provider in 1 week. Patient was instructed to avoid alcohol. I have been assigned to dictate discharge summary for this account. I was not involved in the patient's management. Suzy Ivey NP January 24, 2020 13:19
== END 2020-01-21 15:47 | disposition home or self-care (01) | DRG 897 ==
LOC: EMR 16:15 → 3E 17:55 → EDBEDREQ 19:09 → 3E 20:22
DX: F10.10 Alcohol abuse, uncomplicated (principal); R11.2 Nausea with vomiting, unspecified; E87.6 Hypokalemia; K29.70 Gastritis, unspecified, without bleeding; E86.0 Dehydration
CPT/HCPCS: 36415; 71045; 74177; 80053; 80307; 81003; 81025; 82248; 83605; 83690; 83735; 84443; 84703; 85025; 87635; 93005; 96361; 96374; 96375; 99285; G0480; J2405; J2765; J8499

== ENCOUNTER 2020-01-22 00:01 | Emergency (ER) | payer BC ==
[~2020-01-22] VITALS: Ht 162.6 cm; Wt 49.9 kg
[2020-01-22 00:10] VITALS: BP 110/63
--- NOTE | 2020-01-22 00:10 | NUR ---
ED Nurse Note: Pt walked into ED from home for c/o N/V since 8pm last night. Pt was seen at [facility] and was admitted yesterday for similar complaint along with low potassium. Pt states after being discharged from [facility] yesterday, she went home cooked food and was not able to tolerate it and has been vomiting since. Pt is aaox4, breathing is normal and unlabored. Pt connected to category development manager. IV line established, blood drawn and sent to lab. Pt appears anxious.
[2020-01-22] MEDS ORDERED: Metoclopramide 10mg/2ml Inj IVP ONE ×2 (00:15→02:30)
--- NOTE | 2020-01-22 00:22 | Emergency Room Report ---
History of Present Illness General Chief Complaint: Vomiting Present Illness HPI Disclaimer: Please note that this report is being documented using [employer] technology. This can lead to erroneous entry secondary to incorrect interpretation by the dictating instrument. HPI: 34-year-old female recently here yesterday for nausea and vomiting, admitted for intractable vomiting and hypokalemia discharged this afternoon scented back to the ER for recurrent nausea and vomiting. She states she was feeling better after leaving the hospital, went home and had dinner and had return of her symptoms. She reports a tactile fever at home but was afebrile on arrival. Denies diarrhea. Patient denies any smoking drinking or marijuana use today PMH: Patient denies any past medical history PSH: Reviewed Social Hx: Occasional marijuana user occasional drinker denies illicit drug use Allergies: Coded Allergies: No Known Allergies (Unverified , 01/18/20) COVID-19 Screening Contact w/high risk pt: No Recent Travel to affected area: No Experienced COVID-19 symptoms?: Yes COVID-19 symptoms experienced: Fever (T>100.4F or >38C), Cough Patient History Last Menstrual Period: n/a Reviewed Nursing Documentation: PMH: Agreed; PSxH: Agreed Nursing Documentation-PMH Hx Gastrointestinal Problems: Yes Review of Systems All Other Systems: negative except mentioned in HPI Physical Exam Vital Signs Date Time Temp Pulse Resp B/P (MAP) Pulse Ox O2 Delivery O2 Flow Rate FiO2 01/22/20 00:05 98.8 90 18 99 Room Air Sp02 EP Interpretation: reviewed, normal General Appearance: well appearing, no apparent distress Head: normocephalic, atraumatic Eyes: bilateral eye PERRL, bilateral eye EOMI ENT: hearing grossly normal, moist mucus membranes Neck: full range of motion, supple Respiratory: lungs clear, normal breath sounds, no rhonchi, no respiratory distress, no retraction, no wheezing Cardiovascular #1: normal peripheral pulses, regular rate, rhythm, no murmur Gastrointestinal: non tender, soft, non-distended, no guarding Neurologic: alert, oriented x3, no focal defects Skin: normal color, warm/dry Medical Decision Making Diagnostic Impression: Primary Impression: Vomiting ER Course MDM: Patient presented for recurrent nausea and vomiting. Differential included hyperemesis, gastritis, dehydration, hypokalemia and to name a few Clinical course-IV inserted IV fluids given Reglan given. Patient's vomiting controlled in the ER. On reassessment she was in no acute distress alert ambulatory feeling improved. Will discharge home on Reglan as needed as Zofran appears to be ineffective for the patient. I encouraged a mild diet. Follow- up PMD. Return precautions given. Labs -potassium 3.2 Laboratory Tests Test 01/22/20 00:20 White Blood Count 10.0 K/UL (4.8-10.8) Red Blood Count 4.41 M/UL (4.20-5.40) Hemoglobin 14.9 G/DL (12.0-16.0) Hematocrit 40.5 % (37.0-47.0) Mean Corpuscular Volume 92 FL (80-99) Mean Corpuscular Hemoglobin 33.7 PG (27.0-31.0) H Mean Corpuscular Hemoglobin Concent 36.7 G/DL (32.0-36.0) H Red Cell Distribution Width 10.7 % (11.6-14.8) L Platelet Count 251 K/UL (150-450) Mean Platelet Volume 5.9 FL (6.5-10.1) L Neutrophils (%) (Auto) 76.6 % (45.0-75.0) H Lymphocytes (%) (Auto) 16.9 % (20.0-45.0) L Monocytes (%) (Auto) 5.3 % (1.0-10.0) Eosinophils (%) (Auto) 0.1 % (0.0-3.0) Basophils (%) (Auto) 1.1 % (0.0-2.0) Sodium Level 138 MMOL/L (136-145) Potassium Level 3.2 MMOL/L (3.5-5.1) L Chloride Level 100 MMOL/L (98-107) Carbon Dioxide Level 20 MMOL/L (21-32) L Anion Gap 18 mmol/L (5-15) H Blood Urea Nitrogen 5 mg/dL (7-18) L Creatinine 1.0 MG/DL (0.55-1.30) Estimated Glomerular Filtration Rate > 60 mL/min (>60) Glucose Level 107 MG/DL (74-106) H Calcium Level 9.4 MG/DL (8.5-10.1) # Total Bilirubin 1.1 MG/DL (0.2-1.0) H Direct Bilirubin 0.3 MG/DL (0.0-0.3) Aspartate Amino Transferase (AST) 24 U/L (15-37) Alanine Aminotransferase (ALT) 46 U/L (12-78) Alkaline Phosphatase 40 U/L (46-116) L Total Protein 8.7 G/DL (6.4-8.2) #H Albumin 4.7 G/DL (3.4-5.0) Globulin 4.0 g/dL Albumin/Globulin Ratio 1.2 (1.0-2.7) Lipase 297 U/L (73-393) On reevaluation: patient improved, vomiting improved,Stable for discharge Plan -discharge home with antiemetics as needed, bland diet, follow-up PMD, avoid marijuana, avoid EtOH. Return precautions given Last Vital Signs Date Time Temp Pulse Resp B/P (MAP) Pulse Ox O2 Delivery O2 Flow Rate FiO2 01/22/20 00:05 98.8 90 18 99 Room Air Disposition: HOME, SELF-CARE Condition: Improved Scripts Metoclopramide Hcl* (REGLAN*) 10 Mg Tablet 10 MG ORAL THREE TIMES A DAY PRN for Nausea & Vomiting, #30 TAB Prov: Milton Bernard M.D. 01/22/20 Milton Bernard M.D. January 22, 2020 00:22
[2020-01-22 00:30] LABS: BASOPHILS % (AUTO) 1.1 % (0.0-2.0); EOSINOPHILS % (AUTO) 0.1 % (0.0-3.0); HEMATOCRIT 40.5 % (37.0-47.0); HEMOGLOBIN 14.9 G/DL (12.0-16.0); LYMPHOCYTES % (AUTO) 16.9 % (20.0-45.0); MEAN CORPUSCULAR VOLUME 92 FL (80-99); MONOCYTES % (AUTO) 5.3 % (1.0-10.0); NEUTROPHILS % (AUTO) 76.6 % (45.0-75.0); PLATELET COUNT 251 K/UL (150-450); RED BLOOD COUNT 4.41 M/UL (4.20-5.40); RED CELL DISTRIBUTION WIDTH 10.7 % (11.6-14.8)
--- NOTE | 2020-01-22 00:30 | NUR ---
ED Nurse Note: Pt denies any alcohol use last night.
[2020-01-22 00:41] LABS: ANION GAP 18 mmol/L (5-15); BLOOD UREA NITROGEN 5 mg/dL (7-18); CALCIUM 9.4 MG/DL (8.5-10.1); CARBON DIOXIDE 20 MMOL/L (21-32); CHLORIDE 100 MMOL/L (98-107); POTASSIUM 3.2 MMOL/L (3.5-5.1); SODIUM 138 MMOL/L (136-145)
[2020-01-22 00:51] LABS: ALANINE AMINOTRANSFERASE 46 U/L (12-78); ALBUMIN 4.7 G/DL (3.4-5.0); ALBUMIN/GLOBULIN RATIO 1.2 (1.0-2.7); ALKALINE PHOSPHATASE 40 U/L (46-116); ASPARTATE AMINO TRANSFERASE 24 U/L (15-37); BILIRUBIN,TOTAL 1.1 MG/DL (0.2-1.0)
[2020-01-22 00:54] LABS: BILIRUBIN,DIRECT 0.3 MG/DL (0.0-0.3)
--- NOTE | 2020-01-22 01:15 | NUR ---
ED Nurse Note: Pt appears to be feeling better, resting in bed. No vomiting.
[2020-01-22] MEDS ORDERED: REGLAN10 MG ORAL (02:00)
--- NOTE | 2020-01-22 02:05 | NUR ---
ED Nurse Note: Pt sitting up in bed attempting to vomit. Pt reports feel nauseous again. ERMD aware.
[2020-01-22] MEDS ORDERED: Metoclopramide 10mg/2ml Inj ONE (02:28)
[2020-01-22 02:45] VITALS: BP 126/79
== END 2020-01-22 02:45 | disposition home or self-care (01) ==
LOC: EMR 00:13
DX: R11.10 Vomiting, unspecified (principal)
CPT/HCPCS: 36415; 80053; 82248; 83690; 85025; 96361; 96374; 96376; 99284; J2765; J7030